=== PATIENT | female | born 1990 ===

== ENCOUNTER 2022-04-04 10:58 | Outpatient (CLI) | payer OTHER ==
[2022-04-05] MEDS ORDERED: NAPROXEN500 MG PO (10:49)
[2022-04-05] MEDS ORDERED: TRAM1TAB98 PO (10:52)
== END 2022-04-04 11:15 | disposition home or self-care (01) ==
LOC: SONOGRAMA 10:58
DX: M25.562 Pain in left knee (principal)

== ENCOUNTER 2022-04-05 06:08 | Day surgery (SDC) | payer OTHER ==
[2022-04-05] MEDS ORDERED: NAPROXEN500 MG PO (10:49)
[2022-04-05] MEDS ORDERED: TRAM1TAB98 PO (10:52)
== END 2022-04-05 13:35 | disposition home or self-care (01) ==
LOC: CIR.AMB 06:08
PROVIDERS: ATTEND Obstetrics & Gynecology
DX: D27.1 Benign neoplasm of left ovary (principal); N73.6 Female pelvic peritoneal adhesions (postinfective); Z91.013 Allergy to seafood; Z20.822 Contact with and (suspected) exposure to COVID-19; F12.90 Cannabis use, unspecified, uncomplicated